=== PATIENT | female | born 1980 | race African-American/Black ===

== ENCOUNTER 2020-12-01 19:40 | Emergency (ER) | payer MEDICAID ==
[~2020-12-01] VITALS: Ht 154.9 cm; Wt 87.0 kg
[2020-12-01] MEDS ORDERED: METH-773 MT (23:22)
[2020-12-01] MEDS ORDERED: NAPR-681 MT (23:22)
[2020-12-01] MEDS ORDERED: KETOROLAC 30MG/ML VIAL IM ONE (23:30)
[2020-12-01 23:44] VITALS: BP 121/78
== END 2020-12-02 00:06 | disposition home or self-care (01) ==
LOC: ER 19:40
DX: M54.2 Cervicalgia (principal); M54.89 Other dorsalgia; R03.0 Elevated blood-pressure reading, without diagnosis of hypertension
CPT/HCPCS: 81025; 96372; 99283; J1885